=== PATIENT | female | born 1935 | race Caucasian/White ===

== ENCOUNTER 2019-03-19 23:47 | Emergency (ER) | payer OTHER ==
[~2019-03-19] VITALS: Ht 170.2 cm; Wt 84.8 kg
[~2019-03-19 23:47] MED LIST: ARICEPT10 M1 PO; ARTIFICIAL TEAR15 M1 OPHTHALMIC; ARTIFICIAL TEAR1510 OPHTHALMIC; CALCIUM 600 +1 EAC5 PO; CLOPIDOGREL75 MG PO; KEPPRA 500 MG500 M1 PO; LISINOPRIL10 MG PO; ORADENT 0.1% DEN5 G1 TOP; SINGULAIR 10 MG10 M1 PO; ZOLOFT 50 MG TA50 M1 PO
[2019-03-20] MEDS ORDERED: MYRBETRIQ50 MG PO (00:17)
[2019-03-20] MEDS ORDERED: ROBITUSSIN100 MG/53 PO (00:17)
[2019-03-20] MEDS ORDERED: AUGMENTIN 875-1 EACH PO (00:17)
[2019-03-20] MEDS ORDERED: LANOLIN HYDROUS28 GM TOP (00:18)
[2019-03-20] MEDS ORDERED: FLONASE 0.05%50 MCG NASAL (00:18)
[2019-03-20] MEDS ORDERED: NITROGLYCERIN0.4 MG SUBLING (00:20)
[2019-03-20] MEDS ORDERED: PATADAY2.5 ML OPHTHALMIC (00:20)
[2019-03-20 01:54] LABS: BASOPHILS 0.3 % (0.0-2.0); EOSINOPHILS 1.4 % (0.0-3.0); HEMOGLOBIN 15.3 gm/dL (12.0-15.0); LYMPHOCYTES 13.7 % (24.0-44.0); MCH 31.3 pg (26.0-34.0); MCHC 33.3 g/dL (28.0-37.0); MCV 93.8 fL (80.0-100.0); MONOCYTES 5.3 % (1.0-8.0); PLATELET COUNT 322 thou/uL (150-400); POLYS 79.3 % (36.0-66.0); WBC 8.9 thou/uL (4.0-11.0)
[2019-03-20 01:58] LABS: ANION GAP 7 mmol/L (7-16); BUN 20 mg/dL (7-18); CALCIUM 9.2 mg/dL (8.5-10.1); CHLORIDE 105 mmol/L (98-107); CO2 29 mmol/L (21-32); CREATININE 1.1 mg/dL (0.6-1.0); GLUCOSE 150 mg/dL (74-106); POTASSIUM 4.2 mmol/L (3.5-5.1); SODIUM 141 mmol/L (136-145)
[2019-03-20 02:08] LABS: URINE BILIRUBIN NEGATIVE (Negative); URINE BLOOD NEGATIVE (Negative); URINE CLARITY CLEAR; URINE COLOR YELLOW; URINE GLUCOSE-RANDOM* NEGATIVE (Negative); URINE KETONES NEGATIVE (Negative); URINE NITRITE-REFLEX NEGATIVE (Negative); URINE PROTEIN (DIPSTICK) NEGATIVE (Negative); URINE SPECIFIC GRAVITY 1.025 (1.005-1.035); URINE UROBILINOGEN 0.2 E.U./dl (0.2-1.0)
[2019-03-20 02:08] LABS: ALBUMIN 3.3 g/dL (3.4-5.0); DIRECT BILIRUBIN < 0.1 mg/dL (<0.1-0.3); SGOT 12 U/L (15-37); SGPT 17 U/L (30-65); TOTAL BILIRUBIN 0.3 mg/dL (<0.1-1.0); TOTAL PROTEIN 7.2 g/dL (6.4-8.2); TROPONIN-I <0.06 ng/mL (<0.06)
[2019-03-20 02:09] LABS: URINE LEUKOCYTES-REFLEX 1+ (Negative)
[2019-03-20 02:20] LABS: BACTERIA-REFLEX 1-9 Few /HPF (None Seen); CASTS None Seen /LPF (None Seen); CRYSTALS None Seen /LPF (None Seen); MUCUS 0-3 Light strn/LPF (None Seen); SQUAMOUS 0-3 Few /LPF (0-3); TRANSITIONAL EPITHEL CELL 4-10 Moderate /LPF (None Seen); URINE RBC 0-2 Rare /HPF (0-2); URINE WBC-REFLEX 6-15 Few /HPF (0-5)
[2019-03-20] MEDS ORDERED: KEFLEX500 M1 PO (03:30)
[2019-03-20 05:42] VITALS: BP 120/56
--- NOTE | 2019-03-22 18:10 | EKG ---
[place] [address] [facility] [employer] [place] [address] ELECTROCARDIOGRAM REPORT Name: FREDI ASCENCIO Room #: [facility]P [facility] [id number] ������������������ Admission: 03/19/19 ������������������ Attend Phys: Discharge: 03/20/19 ������������������ Date of : 31 Report #: [id number] ����������������������������������������������������������������� [id number] THIS REPORT FOR: //name// [facility] ED Test Date: 2019-03-20 Test Time: 01:48:24 Pat Name: FREDI ASCENCIO Department: Room: Gender: F Social Media Director: rajni : 1935 Requested By: Federica Blanc Order Number: [id number] MD: Ubaldo Cali Measurements Intervals [place] Rate: 73 P: 58 ID: [id number] QRS: -17 QRSD: 87 T: 28 QT: 392 QTc: 432 Interpretive Statements Sinus rhythm Inferior infarct, old Compared to ECG 04/22/2013 08:24:03 Inferior Q waves are more prominent nonspecific change in the ST and T-wave segments Electronically Signed On 03-22-2019 18:10:00 CDT by Ubaldo Cali [email or web address] ��������������������������������������������� <ELECTRONICALLY SIGNED> ���������������������������������������� By: Ubaldo Cali MD, [facility] ��������������������������������������������� 03/22/19 1810 0148 0148 Ubaldo Cali MD, [facility] /EPI
== END 2019-03-20 05:43 ==
LOC: ER 23:47
PROVIDERS: Emergency Medicine
DX: S90.31XA Contusion of right foot, initial encounter (principal); N39.0 Urinary tract infection, site not specified; I10 Essential (primary) hypertension; F03.90 Unspecified dementia, unspecified severity, without behavioral disturbance, psychotic disturbance, mood disturbance, and anxiety; Z90.89 Acquired absence of other organs; Z88.5 Allergy status to narcotic agent; Z88.2 Allergy status to sulfonamides; Z88.6 Allergy status to analgesic agent; W18.2XXA Fall in (into) shower or empty bathtub, initial encounter; Y93.89 Activity, other specified; Y92.002 Bathroom of unspecified non-institutional (private) residence as the place of occurrence of the external cause; Y99.8 Other external cause status

== ENCOUNTER → 2021-03-23 | Outpatient (CLI) | payer OTHER ==
[~2021-03-23] MED LIST changes: +AUGMENTIN 875-1 EACH PO; +FLONASE 0.05%50 MCG NASAL; +KEFLEX500 M1 PO; +LANOLIN HYDROUS28 GM TOP; +MYRBETRIQ50 MG PO; +NITROGLYCERIN0.4 MG SUBLING; +PATADAY2.5 ML OPHTHALMIC; +ROBITUSSIN100 MG/53 PO
== END ==
LOC: BC 10:03 → ULTRA 10:03 → BC 12:23
PROVIDERS: ATTEND Internal Medicine
DX: N63.42 Unspecified lump in left breast, subareolar (principal); N63.41 Unspecified lump in right breast, subareolar; N63.21 Unspecified lump in the left breast, upper outer quadrant